=== PATIENT | female | born 1985 | race Caucasian/White ===

== ENCOUNTER 2020-08-12 07:56 | Outpatient (CLI) | payer OTHER, SELFPAY ==
[2020-08-12 08:54] LABS: Glucose Fasting 94 mg/dL
[2020-08-12 10:57] LABS: Glucose 1 Hour 76 mg/dL
[2020-08-12 11:47] LABS: Glucose 2 Hour 116 mg/dL
[2020-08-12 12:46] LABS: Glucose 3 Hour 101 mg/dL
== END 2020-08-12 07:57 | disposition home or self-care (01) ==
PROVIDERS: PCP Family Medicine; Visit Provider Family Medicine
DX: E16.2 Hypoglycemia, unspecified (principal)
CPT/HCPCS: 36415; 82951; 82952

== ENCOUNTER 2022-06-21 09:12 | Outpatient (CLI) | payer OTHER, SELFPAY ==
--- NOTE | ~2022-06-21 | XR_ITS ---
XR knee RT min 4V 06/21/2022 09:29 INDICATION: Right knee pain PROCEDURE: 4 views right knee COMPARISON: No prior studies for comparison. FINDINGS: Fracture, dislocation or subluxation is not identified. No significant joint effusion. The soft tissues appear within normal limits. No foreign bodies are identified. IMPRESSION: 1: NO ACUTE BONE OR JOINT ABNORMALITY IDENTIFIED. Reviewed, dictated and finalized at location B.
== END 2022-06-21 09:13 | disposition home or self-care (01) ==
LOC: ANHIMG 09:15
PROVIDERS: PCP Family Medicine; Visit Provider Family Medicine
DX: M25.561 Pain in right knee (principal)
CPT/HCPCS: 73564

== ENCOUNTER 2022-07-26 08:00 | Outpatient (RCR) | payer OTHER, SELFPAY ==
--- NOTE | 2022-06-29 15:05 | PTOPEVAL ---
PHYSICAL THERAPY INITIAL EVALUATION. Thank you for referring Alysa Salinas to [facility].? The patient is scheduled to be seen for follow up in 1 month, if needed. Please review, sign, date and return this plan of care ALAN. I agree with and certify that the following plan of care is medically necessary. Referring Physician Date Attending Provider: César Lerma MD *PT Outpatient Evaluation Start: 06/29/22 Evaluation Information Diagnosis R knee pain Onset ~2 weeks ago Subjective Information Pt states she was playing Query Text:As Reported By Patient/ softball about 2-3 weeks ago. Family She states she was running to first base when she last minute decided to run to second, she made a quick pivot . When she did this she states she felt and her a pop in her posterior knee. She states she does not have any pain at rest, and only has pain when she moves the wrong direction. Prior Level of Function Occupation desk job Pain Assessment Right Knee(s) Reported Pain Level 0 Pain Description Crushing,Pressure,Tightness Pain Frequency Acute,Intermittent Lowest Pain Intensity 0 Greatest Pain Intensity 4 Pain Aggravating Factors Sitting Lower Extremity Range of Motion Knee Range of Motion Right Knee Flexion Range of Motion - Active 110 Knee Extension Range of Motion - Active -8 Knee Range of Motion Comments limited by tightness, feeling like her knee will pop Left Knee Flexion Range of Motion - Active 142 Knee Extension Range of Motion - Active 0 Lower Extremity Muscle Strength Testing Gross Lower Extremity Strength kennedy hip flexion 5/5 L knee flexion/extension 5/5 R knee flexion 4+/5 L knee lacking 0 deg of terminal knee extension in short sitting LAQ R knee lacking 22 deg of terminal knee extension in short sitting LAQ - demonstrates functional squat to 90 with near equal weight distribution - able to demonstrate partial range single leg squat with single UE support Palpation Assessment Palpation no tenderness with medial or
--- NOTE | 2022-07-26 09:05 | PTOPDC ---
Assessment and note entered by Alexandria Pennington, PT, DPT Evaluation Information Assessment Status Discharge Diagnosis R knee pain Subjective Information Pt states things have gotten better. She states she will get a quick pain with max flexion, with rotation movements, during walking it sometimes feel like her knee is going to give out on her, and usually when she descends the stairs. She states she is unsure if she should still be having pain or not. Reported Pain Level Pain Score 0: Self Report Assessment PT Clinical Summary Alysa presents to therapy today for her follow up report following a month long participation in her prescribed HEP to treat her R knee pain. Today she demonstrates improved active ROM than is now WNL and almost equal to her L knee. She demonstrates improved strength as well but reports pain with max resistance. She has improved gait during ambulation on level surfaces as well as during stairs. She would like to continue her HEP and be discharged from skilled therapy services at this time. She plans to follow up with an orthopedic doctor if her pain does not resolve in anothere 6-8 weeks. Plan of Care PT Services Indicated No Treatment Frequency and to be d/c'ed Duration
== END 2022-07-26 16:02 | disposition home or self-care (01) ==
LOC: ANHGOSHPT 08:00
PROVIDERS: PCP Family Medicine; Visit Provider Family Medicine
DX: M25.561 Pain in right knee (principal)
CPT/HCPCS: 97110; 97112; 97161